=== PATIENT | female | born 1960 | race Caucasian/White ===

== ENCOUNTER 2018-11-08 06:43 | Day surgery (SDC) | payer OTHER ==
[~2018-11-08] VITALS: Ht 172.7 cm; Wt 68.5 kg
[~2018-11-08 06:43] MED LIST: Diclofenac Sodi50 MG PO; LEVSOD88 PO
--- NOTE | 2018-11-08 07:24 | NUR ---
Ambulatory in Day Surgery. Patient states colon prep results clear. History, Chart, Medications and Allergies reviewed before start of procedure.Lungs clear T/O to Auscultation. Patient confirms NPO status and agrees with scheduled surgery. Pre-Op teaching done. Pt verbalizes understanding. Patient States Post-Procedure ride home has been arranged.
--- NOTE | 2018-11-08 08:00 | NUR ---
11/08/18 0800 Brian Faulkner PATIENT DETERMINED TO BE ASA APPROPRIATE FOR PROPOFOL SEDATION PRIOR TO START OF PROCEDURE BY . 3-LEAD EKG REVIEWED WITH PHYSICIAN PRIOR TO START OF PROCEDURE.PATIENT CONFIRMS NPO STATUS AND AGREES WITH SCHEDULED PROCEDURE.History, Chart, Medications and Allergies reviewed before start of procedure.MONITOR INTACT WITH CONTINUOUS PULSE OXIMETRY AND INTERMITTENT BP.O2 VIA N/C INTACT THROUGHOUT SEDATION/PROCEDURE.
--- NOTE | 2018-11-08 09:10 | NUR ---
Patient up to Ambulate independently. Gait steady. Discharge instructions reviewed with patient. Patient verbalizes understanding. Copy given to patient to take home. Discharged via wheelchair to private car for ride home.
== END 2018-11-08 09:14 | disposition home or self-care (01) ==
LOC: ORSCMMR 06:43 → ORD 08:00 → ORSCMMR 08:00
PROVIDERS: Internal Medicine Gastroenterology
PROC: 0DBM8ZX Excision of Descending Colon, Via Natural or Artificial Opening Endoscopic, Diagnostic (ICD-10-PCS; principal; 2018-11-08 08:00)
PROC: 0DBH8ZX Excision of Cecum, Via Natural or Artificial Opening Endoscopic, Diagnostic (ICD-10-PCS; principal; 2018-11-08 08:00)
DX: Z12.11 Encounter for screening for malignant neoplasm of colon (principal); D12.0 Benign neoplasm of cecum; D12.4 Benign neoplasm of descending colon; Z86.010 Personal history of colon polyps; E03.9 Hypothyroidism, unspecified; F17.210 Nicotine dependence, cigarettes, uncomplicated; Z79.899 Other long term (current) drug therapy
CPT/HCPCS: 88305; J7120

== ENCOUNTER → 2022-07-31 | Outpatient (CLI) | payer OTHER ==
[~2022-07-31] MED LIST changes: +ACET500 PO; +ASPI81CH PO; +ESTRADIOL PO; +LEVSOD100 PO; +Norco 5-325 Ta1 EACH PO; +OXYB5 PO
== END ==
LOC: LAB SHORT 15:22 → PLD 15:22
DX: D48.5 Neoplasm of uncertain behavior of skin (principal)
CPT/HCPCS: 88305

== ENCOUNTER 2022-08-11 07:57 | Day surgery (SDC) | payer OTHER ==
[~2022-08-11] VITALS: Ht 175.3 cm; Wt 64.9 kg
[~2022-08-11 07:57] MED LIST changes: -ACET500 PO; -ASPI81CH PO; -Norco 5-325 Ta1 EACH PO
--- NOTE | 2022-08-11 09:50 | NUR ---
History, Chart, Medications and Allergies reviewed before start of procedure. Patient confirms NPO status and agrees with scheduled surgery. ORDER CLARIFICATION OBTAINED FROM DR VELAZQUEZ ABOUT ANTIBIOTIC SELECTION. PROCEEDING WITH ANCEF PER DR VELAZQUEZ. PARTIAL DENTURES LEFT IN PER DR AGUILAR.
--- NOTE | 2022-08-11 18:07 | NUR ---
SHIFT SUMMARY PT ARRIVED TO UNIT AROUND 1300, SPINAL DID NOT WEAR OFF UNTIL AFTER 1600. UP TO BATHROOM & CHAIR BUT REPORTS LEGS STILL FEEL NUMB SO NO AMBULATION IN HALLWAYS YET. PAIN WELL MANAGED w/ 1 JENNIFER.
--- NOTE | 2022-08-12 03:51 | NUR ---
SHIFT SUMMARY POD1 R TKA WITH DR. VELAZQUEZ. PT REPORTS MODERATE PAIN 4-5/10. PAIN MANAGED WITH NORCO 10/325 AND TORADOL. PT AMBULATES IN THE HALLWAY BEFORE BED LAST NIGHT. GETS UP IN THE BATHROOM WITH 1PA, FWW/GB. PT DENIES N/V. TOLERATING PO INTAKE. IV ABX ADMINSITERED. VSS. CALL LIGHT WITHIN REACH. WILL PROVIDE REPORT TO ONCOMING NURSE. CALL LIGHT WITHIN REACH. WILL PROVIDE REPORT TO ONCOMIN NURSE.
[2022-08-12 05:08] LABS: BASOPHILS ABSOLUTE AUTO 0.02 K/mm3 (0.00-0.23); BASOPHILS PERCENT AUTO 0 % (0-2); EOSINOPHILS ABSOLUTE AUTO 0.03 K/mm3 (0.00-0.68); EOSINOPHILS PERCENT AUTO 0 % (0-6); Hematocrit 37.9 % (33.0-51.0); Hemoglobin 12.8 g/dL (11.5-16.0); IMMATURE GRAN ABSOLUTE AUTO 0.08 K/mm3 (0.00-0.10); IMMATURE GRAN PERCENT AUTO 1 % (0-1); LYMPHOCYTES ABSOLUTE AUTO 1.59 K/mm3 (0.84-5.20); LYMPHOCYTES PERCENT AUTO 9 % (21-46); MONOCYTES ABSOLUTE AUTO 1.09 K/mm3 (0.16-1.47); MONOCYTES PERCENT AUTO 7 % (4-13); Mean Corpuscular HGB 32.2 pg (26.0-34.0); Mean Corpuscular HGB Conc 33.8 g/dL (31.5-36.5); Mean Corpuscular Volume 96 fL (80-100); Mean Platelet Volume 11.6 fL (9.1-12.4); NEUTROPHILS ABSOLUTE AUTO 14.06 K/mm3 (1.96-9.15); NEUTROPHILS PERCENT AUTO 83 % (41-73); Platelet Count 316 K/mm3 (150-400); RDW Standard Deviation 46.5 fL (35.1-46.3); Red Blood Cell Count 3.97 M/mm3 (3.80-5.20); White Blood Cell Count 16.87 K/mm3 (4.00-11.30)
[2022-08-12 05:42] LABS: Bun/Creatinine Ratio 17.5 (12.0-20.0); Calcium, Blood 8.6 mg/dL (8.5-10.1); Creatinine, Blood 0.69 mg/dL (0.40-1.00); Magnesium, Blood 2.3 mg/dL (1.6-2.4); Potassium, Blood 4.4 mmol/L (3.5-5.5)
[2022-08-12] MEDS ORDERED: ASPI81CH PO (08:42)
[2022-08-12] MEDS ORDERED: ACET500 PO (08:44)
[2022-08-12] MEDS ORDERED: Norco 5-325 Ta1 EACH PO (08:45)
--- NOTE | 2022-08-12 09:54 | NUR ---
DISCHARGE PT HAS CLEARED THERAPY. PAIN WELL CONTROLLED. EATING, DRINKING, & VOIDING WELL. DRSDAVID & POLAR PACK w/ PT. WAITING FOR RIDE.
--- NOTE | 2022-08-12 10:38 | NUR ---
DISCHARGE ESCORTED OUT VIA WC TO PRIVATE VEHICLE.
== END 2022-08-12 10:39 | disposition home or self-care (01) ==
LOC: ORSCMMR 07:57 → SURS 12:44 → ORSCMMR 13:45 → ORD 13:45 → ORSCMMR 08-12 10:39
PROVIDERS: Orthopaedic Surgery
PROC: 0SRC0JA Replacement of Right Knee Joint with Synthetic Substitute, Uncemented, Open Approach (ICD-10-PCS; principal; 2022-08-11 10:15)
DX: M17.11 Unilateral primary osteoarthritis, right knee (principal); E03.9 Hypothyroidism, unspecified; F17.210 Nicotine dependence, cigarettes, uncomplicated; Z79.899 Other long term (current) drug therapy
CPT/HCPCS: 36415; 73560-RT; 80048; 83735; 85025; 97110; 97116; 97162; A9270; C1776; J0171; J0690; J0735; J1100; J1885; J2250; J2405; J2704; J2795; J3010; J7120

== ENCOUNTER 2023-04-27 08:54 | Day surgery (SDC) | payer OTHER ==
[2023-04-27] VITALS (14 sets, daily range): BP systolic 95–134; BP diastolic 59–91
[~2023-04-27] VITALS: Ht 170.2 cm; Wt 64.7 kg
[~2023-04-27 08:54] MED LIST changes: +ACET500 PO; +ASPI81CH PO; +IBUP400 PO; +Norco 5-325 Ta1 EACH PO
--- NOTE | 2023-04-27 09:54 | NUR ---
Ambulatory in Day Surgery. History, Chart, Medications and Allergies reviewed before start of procedure. Lungs clear T/O to Auscultation. Patient confirms NPO status and agrees with scheduled surgery. Pre-Op teaching done. Pt verbalizes understanding. PT BELONGINGS PLACED UNDERNEATH GURNEY FOR SAFEKEEPING.
--- NOTE | 2023-04-27 13:27 | NUR ---
ARRIVAL TO UNIT ARRIVES IN HOSPITAL BED. ASSESSMENT CHARTED. PLEASANT & COOPERATIVE. DENIES N/V SO SNACKS & WATER GIVEN.
--- NOTE | 2023-04-27 18:36 | NUR ---
SHIFT SUMMARY PT HAS DONE WELL POST OP. DENIES PAIN. AROUND 1814 SPINAL HAD WORE OFF ENOUGH THAT PT COULD LIFT LEG BUT NOT MAINTAIN UP. EATING, DRINKING, VOIDING.
[2023-04-28 00:05] VITALS: BP 138/67
[2023-04-28 04:23] VITALS: BP 134/66
[2023-04-28 05:00] LABS: BASOPHILS ABSOLUTE AUTO 0.02 K/mm3 (0.00-0.23); BASOPHILS PERCENT AUTO 0 % (0-2); EOSINOPHILS PERCENT AUTO 0 % (0-6); Hematocrit 41.3 % (33.0-51.0); Hemoglobin 13.9 g/dL (11.5-16.0); IMMATURE GRAN PERCENT AUTO 1 % (0-1); LYMPHOCYTES ABSOLUTE AUTO 1.36 K/mm3 (0.84-5.20); LYMPHOCYTES PERCENT AUTO 7 % (21-46); MONOCYTES ABSOLUTE AUTO 1.01 K/mm3 (0.16-1.47); MONOCYTES PERCENT AUTO 5 % (4-13); Mean Corpuscular HGB 31.9 pg (26.0-34.0); Mean Corpuscular HGB Conc 33.7 g/dL (31.5-36.5); Mean Corpuscular Volume 95 fL (80-100); Mean Platelet Volume 11.4 fL (9.1-12.4); NEUTROPHILS ABSOLUTE AUTO 16.27 K/mm3 (1.96-9.15); NEUTROPHILS PERCENT AUTO 87 % (41-73); Platelet Count 333 K/mm3 (150-400); RDW Standard Deviation 45.6 fL (35.1-46.3); Red Blood Cell Count 4.36 M/mm3 (3.80-5.20); White Blood Cell Count 18.76 K/mm3 (4.00-11.30)
--- NOTE | 2023-04-28 05:47 | NUR ---
SHIFT SUMMARY POD 1, L TKA. AQUACELL C/D/I, POLAR PACK IN PLACE. A&OX4, AMB TO BATHROOM AND IN HALLWAY TO WINDOW/ DESK W/ USE OF WALKER/ GB, TOLERATED WELL. PT MEDICATED X1 W/ DILAUDID AND X1 W/ NORCO. NO ACUTE CHANGES THIS SHIFT, PT PLANS FOR DISCHARGE TODAY. CALL LIGHT W/IN REACH. WILL REPORT OFF TO ONCOMING SHIFT.
[2023-04-28 05:50] LABS: Bun/Creatinine Ratio 21.9 (12.0-20.0); Calcium, Blood 8.7 mg/dL (8.5-10.1); Creatinine, Blood 0.64 mg/dL (0.40-1.00); Magnesium, Blood 2.3 mg/dL (1.6-2.4); Potassium, Blood 4.1 mmol/L (3.5-5.5)
[2023-04-28 07:37] VITALS: BP 145/83
[2023-04-28] MEDS ORDERED: ACET500 PO (08:20)
[2023-04-28] MEDS ORDERED: ASPI81CH PO (08:20)
[2023-04-28] MEDS ORDERED: SULTRIDS PO (08:21)
[2023-04-28] MEDS ORDERED: Norco 5-325 Ta1 EACH PO (08:21)
--- NOTE | 2023-04-28 09:15 | NUR ---
DISCHARGE EDUCATION PT HAS CLEARED THERAPY. PAIN WELL CONTROLLED. EATING, DRINKING, & VOIDING WELL. WAITING FOR RIDE HOME.
--- NOTE | 2023-04-28 10:05 | NUR ---
ESCORTED OUT VIA WC
== END 2023-04-28 10:05 | disposition home or self-care (01) ==
LOC: ORSCMMR 08:54 → ORD 10:45 → SURS 13:08 → ORSCMMR 04-28 10:05
PROVIDERS: Orthopaedic Surgery
PROC: 8E0Y0CZ Robotic Assisted Procedure of Lower Extremity, Open Approach (ICD-10-PCS; principal; 2023-04-27 10:45)
PROC: 0SRD0JA Replacement of Left Knee Joint with Synthetic Substitute, Uncemented, Open Approach (ICD-10-PCS; principal; 2023-04-27 10:45)
DX: M17.12 Unilateral primary osteoarthritis, left knee (principal); Z96.651 Presence of right artificial knee joint; E03.9 Hypothyroidism, unspecified; Z87.891 Personal history of nicotine dependence; Z79.899 Other long term (current) drug therapy
CPT/HCPCS: 27447; 20985; S2900; 36415; 73560-LT; 80048; 83735; 85025; 97110; 97116; 97162; A9270; C1776; J0171; J0690; J0735; J1100; J1170; J1885; J2250; J2704; J2795; J3010; J7120

== ENCOUNTER → 2024-11-03 | Outpatient (CLI) | payer OTHER ==
[~2024-11-03] MED LIST changes: +SULTRIDS PO
== END ==
LOC: LAB SHORT 12:52 → LAB 12:52
DX: R30.0 Dysuria (principal)
CPT/HCPCS: 87077; 87086; 87186